=== PATIENT | male | born 1945 | race Caucasian/White ===

== ENCOUNTER 2019-06-04 08:45 | Inpatient (IN) | payer MEDICARE ==
[2019-06-04] VITALS (17 sets, daily range): BP systolic 67–118
[~2019-06-04] VITALS: Ht 175.3 cm; Wt 101.6 kg
[2019-06-04] MEDS ORDERED: PIPERACILLIN/TAZO 3.38 GM in NS 50 ML IV ONE (09:00)
[2019-06-04] MEDS ORDERED: DIPHENHYDRAMINE INJ 50 MG/ML VIAL IVP ONE (09:00)
[2019-06-04] MEDS ORDERED: MORPHINE 2 MG/ML INJ. SYRINGE IVP ONE (09:00)
[2019-06-04] MEDS ORDERED: PIPERACILLIN/TAZOBACTAM 3.375 GM/VIAL (ZOSYN) IV ONE (09:22)
[2019-06-04 09:26] LABS: HEMATOCRIT 31.3 % (36-54); HEMOGLOBIN 10.3 g/dL (14.0-18.0); MEAN CORPUSCULAR HEMOGLOBIN 30 pg (27-31); MEAN CORPUSCULAR HGB CONC 33 % (32-36); MEAN CORPUSCULAR VOLUME 91 fL (79.0-98.0); PLATELET COUNT (AUTO) 280 K/uL (130-430); RED BLOOD CELL COUNT(AUTO) 3.43 MIL/uL (4.2-6.2); RED CELL DISTRIBUTION WIDTH 14.9 % (9.0-15.0); WHITE BLOOD COUNT (AUTO) 25.1 K/uL (4.8-10.8)
[2019-06-04 09:31] LABS: ANION GAP 24 (5-15); CALCIUM 8.7 mg/dL (8.4-11.0); CHLORIDE 89 mmol/L (98-107); GLUCOSE 100 mg/dL (70-99); INR 1.1 (0.80-1.20); PROTHROMBIN TIME 11.4 SECS (9.5-12.5); SODIUM SERUM 127 mmol/L (136-145); UREA NITROGEN, BLOOD 83 mg/dL (8-21)
[2019-06-04 09:35] LABS: ALANINE AMINOTRANSFERASE 44 U/L (12-78); ALBUMIN 2.8 g/dL (3.4-4.8); ASPARTATE AMINOTRANSFERASE 35 U/L (10-37); LIPASE 48 U/L (73-393); TOTAL BILIRUBIN 0.4 mg/dL (0.0-1.0)
[2019-06-04 09:37] LABS: POTASSIUM 6.9 mmol/L (3.5-5.1)
[2019-06-04] MEDS ORDERED: INSULIN REGULAR, HUMAN 10 UNITS/0.1 ML INJ IVP ONE (09:45)
[2019-06-04] MEDS ORDERED: SODIUM BICARBONATE 8.4% JECT 50 MEQ/50 ML SYRINGE IVP ONE (09:45)
[2019-06-04] MEDS ORDERED: CALCIUM CHLORIDE 1 GM/10ML VIAL (13.6 mEq Ca++/VIAL) IVP ONE (09:45)
[2019-06-04] MEDS ORDERED: NACL 0.9% 1,000 ML IV SCH ×2 (09:45→12:35)
[2019-06-04] MEDS ORDERED: DEXTROSE 50% JECT 50 ML DISP.SYRIN IVP ONE (09:45)
[2019-06-04] MEDS ORDERED: SODIUM POLYSTYRENE SULFONATE 15 GM/60 ML UDBTL PO ONE ×2 (09:45→17:15)
[2019-06-04 09:58] LABS: BAND % (MANUAL) 22 % (0-6); BASOPHILS % (MANUAL) 0 % (0-2); EOSINOPHILS % (MANUAL) 0 % (0-7); LYMPHOCYTES % (MANUAL) 2 % (20-46); MONOCYTES % (MANUAL) 5 % (0-11)
[2019-06-04 10:35] LABS: BILIRUBIN,URINE NEGATIVE (NEGATIVE); BLOOD, URINE 2+ (NEGATIVE); CLARITY/URINE SL CLOUDY (CLEAR); COLOR,URINE ORANGE (YELLOW); GLUCOSE,URINE TRACE (NEGATIVE); KETONES,URINE TRACE (NEGATIVE); LEUKOCYTE ESTERASE ,URINE 2+ (NEGATIVE); NITRITE, URINE POSITIVE (NEGATIVE); PROTEIN URINE 3+ (NEGATIVE)
[2019-06-04 10:39] LABS: BACTERIA,URINE MANY /HPF (None Seen); WBC,URINE 20-50 /HPF (0-3)
[2019-06-04] MEDS ORDERED: NACL 0.9% 1,000 ML IV ONE ×2 (11:15→15:15)
[2019-06-04] MEDS ORDERED: D5/0.45 NS 1,000 ML IV SCH (11:30)
[2019-06-04] MEDS ORDERED: HYT1 PO (11:54)
[2019-06-04] MEDS ORDERED: GLU850 PO (11:54)
[2019-06-04] MEDS ORDERED: PHEN97.511 PO (11:54)
[2019-06-04] MEDS ORDERED: LISI10TA5 PO (11:54)
[2019-06-04] MEDS ORDERED: LIP80 PO (11:54)
[2019-06-04] MEDS ORDERED: NPH,100I SQ (11:54)
[2019-06-04] MEDS ORDERED: D5W 1,000 ML IV PRN (12:35)
[2019-06-04] MEDS ORDERED: LORazepam 2 MG/ML VIAL IVP PRN (12:45)
[2019-06-04] MEDS ORDERED: ATORVASTATIN 20 MG TABLET PO ONE (12:45)
[2019-06-04] MEDS ORDERED: DEXTROSE 50% JECT 50 ML DISP.SYRIN IVP PRN (12:45)
[2019-06-04] MEDS ORDERED: HYDROcodone/ACETAMIN 10-325 MG TAB PO PRN (12:45)
[2019-06-04] MEDS ORDERED: ONDANSETRON HCL 4 MG/2 ML VIAL IVP PRN (12:45)
[2019-06-04] MEDS ORDERED: HYDROcodone/ACETAMIN 5-325 MG TAB (NORCO/ VICODIN) PO PRN (12:45)
[2019-06-04] MEDS ORDERED: GLUCOSE 15 GM GEL (in 37.5 GM TUBE) PO PRN (12:45)
[2019-06-04] MEDS ORDERED: ACETAMINOPHEN 325 MG TABLET PO PRN (12:45)
[2019-06-04] MEDS ORDERED: NOREPINEPHRINE BITARTRATE 4 MG in NS 246 ML IV PRN (15:15)
[2019-06-04] MEDS: PIPERACILLIN/TAZO 2.25G/DEX-IS 50 ML IV SCH ×2 (15:27→20:57)
[2019-06-04 16:35] LABS: HEMATOCRIT 26.4 % (36-54); HEMOGLOBIN 8.9 g/dL (14.0-18.0); MEAN CORPUSCULAR HEMOGLOBIN 31 pg (27-31); MEAN CORPUSCULAR HGB CONC 34 % (32-36); MEAN CORPUSCULAR VOLUME 91 fL (79.0-98.0); PLATELET COUNT (AUTO) 221 K/uL (130-430); RED BLOOD CELL COUNT(AUTO) 2.89 MIL/uL (4.2-6.2); RED CELL DISTRIBUTION WIDTH 14.9 % (9.0-15.0); WHITE BLOOD COUNT (AUTO) 17.7 K/uL (4.8-10.8)
[2019-06-04 16:48] LABS: ANION GAP 19 (5-15); CALCIUM 7.9 mg/dL (8.4-11.0); CHLORIDE 92 mmol/L (98-107); GLUCOSE 83 mg/dL (70-99); SODIUM SERUM 125 mmol/L (136-145); UREA NITROGEN, BLOOD 82 mg/dL (8-21)
[2019-06-04 16:53] LABS: ALANINE AMINOTRANSFERASE 50 U/L (12-78); ALBUMIN 2.3 g/dL (3.4-4.8); ASPARTATE AMINOTRANSFERASE 48 U/L (10-37); TOTAL BILIRUBIN 0.4 mg/dL (0.0-1.0)
[2019-06-04 16:59] LABS: POTASSIUM 6.2 mmol/L (3.5-5.1)
[2019-06-04 17:05] LABS: BAND % (MANUAL) 6 % (0-6); BASOPHILS % (MANUAL) 0 % (0-2); EOSINOPHILS % (MANUAL) 0 % (0-7); LYMPHOCYTES % (MANUAL) 1 % (20-46); MONOCYTES % (MANUAL) 4 % (0-11)
[2019-06-04] MEDS: SODIUM BICARBONATE 8.4% JECT 100 MEQ in 0.45% NACL 1,000 ML IV SCH (17:48)
[2019-06-04] MEDS ORDERED: HYDROCORTISONE SOD SUCC 100 MG/2 ML VIAL ONE ×2 (19:06→20:58)
[2019-06-04] MEDS ORDERED: MIDAZOLAM HCL 5 MG/5 ML VIAL ONE (19:16)
[2019-06-04] MEDS ORDERED: LORazepam 2 MG/ML VIAL ONE (20:35)
[2019-06-04] MEDS: HYDROCORTISONE SOD SUCC 100 MG/2 ML VIAL IVP SCH (20:57)
[2019-06-04] MEDS ORDERED: INSULIN GLARGINE 100 UNITS/ML 10 ML VIAL SQ SCH (21:00)
[2019-06-04] MEDS: LEVOFLOXACIN 250 MG/D5W 50 ML IV SCH (21:11)
[2019-06-04] MEDS: metroNIDAZOLE 500 mg/NS 100 ML IV SCH (21:12)
[2019-06-04] MEDS ORDERED: LEVOFLOXACIN 250 MG/D5W 50 ML IV ONE (21:16)
[2019-06-04] MEDS ORDERED: metroNIDAZOLE 500 mg/NS 100 ML IV ONE (21:16)
[2019-06-04] MEDS ORDERED: FUROSEMIDE 40 MG/4 ML VIAL ONE (22:32)
[2019-06-04 22:50] LABS: ANION GAP 20 (5-15); CALCIUM 7.6 mg/dL (8.4-11.0); CHLORIDE 94 mmol/L (98-107); GLUCOSE 161 mg/dL (70-99); SODIUM SERUM 130 mmol/L (136-145); UREA NITROGEN, BLOOD 90 mg/dL (8-21)
[2019-06-04] MEDS: LORazepam 2 MG/ML VIAL IVP PRN (22:58)
[2019-06-04] MEDS ORDERED: NS 500 ML IV SCH (23:00)
[2019-06-04] MEDS ORDERED: FUROSEMIDE 40 MG/4 ML VIAL IVP SCH (23:00)
[2019-06-04] MEDS ORDERED: METOPROLOL TARTRATE 25 MG TABLET PO SCH (23:00)
[2019-06-04 23:10] LABS: CREATININE 8.15 mg/dL (0.55-1.30); POTASSIUM 6.4 mmol/L (3.5-5.1)
[2019-06-04] MEDS ORDERED: DILTIAZEM HCL 25 MG/5 ML VIAL IVP ONE (23:45)
[2019-06-05] VITALS (24 sets, daily range): BP systolic 90–155
[2019-06-05] MEDS: DILTIAZEM HCL 125 MG in D5W 100 ML IV SCH ×4 (00:11→21:03)
[2019-06-05] MEDS ORDERED: DILTIAZEM HCL 125 MG/25 ML VIAL IV ONE (00:17)
[2019-06-05] MEDS ORDERED: SODIUM POLYSTYRENE SULFONATE 15 GM/60 ML UDBTL RC ONE (01:30)
[2019-06-05] MEDS: NOREPINEPHRINE BITARTRATE 4 MG in NS 246 ML IV PRN ×3 (02:57→15:59)
[2019-06-05] MEDS: SODIUM BICARBONATE 8.4% JECT 100 MEQ in 0.45% NACL 1,000 ML IV SCH ×3 (02:58→21:39)
[2019-06-05] MEDS: HYDROCORTISONE SOD SUCC 100 MG/2 ML VIAL IVP SCH ×3 (03:00→21:48)
[2019-06-05] MEDS ORDERED: NOREPINEPHRINE 4 MG/4 ML VIAL IV ONE (03:04)
[2019-06-05] MEDS: PIPERACILLIN/TAZO 2.25G/DEX-IS 50 ML IV SCH ×3 (06:06→21:41)
[2019-06-05] MEDS: INSULIN REGULAR, HUMAN 100 UNITS/ML, 10 ML VIAL (humuLIN R) SUBCUT PRN ×3 (06:07→17:54)
[2019-06-05 06:42] LABS: HEMATOCRIT 26.3 % (36-54); HEMOGLOBIN 8.9 g/dL (14.0-18.0); MEAN CORPUSCULAR HEMOGLOBIN 30 pg (27-31); MEAN CORPUSCULAR HGB CONC 34 % (32-36); MEAN CORPUSCULAR VOLUME 91 fL (79.0-98.0); PLATELET COUNT (AUTO) 246 K/uL (130-430); RED BLOOD CELL COUNT(AUTO) 2.91 MIL/uL (4.2-6.2); RED CELL DISTRIBUTION WIDTH 15.5 % (9.0-15.0); WHITE BLOOD COUNT (AUTO) 22.5 K/uL (4.8-10.8)
[2019-06-05 06:58] LABS: ALANINE AMINOTRANSFERASE 55 U/L (12-78); ALBUMIN 1.9 g/dL (3.4-4.8); ANION GAP 18 (5-15); ASPARTATE AMINOTRANSFERASE 52 U/L (10-37); CALCIUM 7.2 mg/dL (8.4-11.0); CHLORIDE 93 mmol/L (98-107); GLUCOSE 192 mg/dL (70-99); POTASSIUM 5.7 mmol/L (3.5-5.1); SODIUM SERUM 126 mmol/L (136-145); TOTAL BILIRUBIN 0.4 mg/dL (0.0-1.0); UREA NITROGEN, BLOOD 94 mg/dL (8-21)
[2019-06-05 07:04] LABS: CREATININE 8.17 mg/dL (0.55-1.30)
[2019-06-05 08:25] LABS: BAND % (MANUAL) 14 % (0-6); BASOPHILS % (MANUAL) 0 % (0-2); EOSINOPHILS % (MANUAL) 0 % (0-7); LYMPHOCYTES % (MANUAL) 3 % (20-46); MONOCYTES % (MANUAL) 4 % (0-11)
[2019-06-05] MEDS ORDERED: METOPROLOL TARTRATE 25 MG TABLET PO SCH (09:00)
[2019-06-05] MEDS: TERAZOSIN HCL 1 MG CAPSULE (HYTRIN) PO SCH (09:00)
[2019-06-05] MEDS: PHENAZOPYRIDINE HCL 100 MG TABLET PO SCH (09:00)
[2019-06-05] MEDS: ATORVASTATIN 20 MG TABLET PO SCH (09:00)
[2019-06-05] MEDS: LORazepam 2 MG/ML VIAL IVP PRN (09:05)
[2019-06-05] MEDS: metroNIDAZOLE 500 mg/NS 100 ML IV SCH (09:18)
[2019-06-05] MEDS: LEVOFLOXACIN 250 MG/D5W 50 ML IV SCH (21:40)
[2019-06-06] VITALS (26 sets, daily range): BP systolic 100–158
[2019-06-06] MEDS: INSULIN REGULAR, HUMAN 100 UNITS/ML, 10 ML VIAL (humuLIN R) SUBCUT PRN ×5 (00:41→22:11)
[2019-06-06] MEDS: SODIUM BICARBONATE 8.4% JECT 100 MEQ in 0.45% NACL 1,000 ML IV SCH ×2 (06:15→16:38)
[2019-06-06 06:56] LABS: BASOPHILS % (AUTO) 0.2 % (0.0-2.0); EOSINOPHILS # (AUTO) 0.1 K/uL (0.0-0.4); EOSINOPHILS % (AUTO) 0.9 % (0.0-4.0); HEMATOCRIT 26.6 % (36-54); HEMOGLOBIN 9.1 g/dL (14.0-18.0); LYMPHOCYTES # (AUTO) 0.4 K/uL (1.0-5.5); LYMPHOCYTES % (AUTO) 2.5 % (20.5-51.5); MEAN CORPUSCULAR HEMOGLOBIN 30 pg (27-31); MEAN CORPUSCULAR HGB CONC 34 % (32-36); MEAN CORPUSCULAR VOLUME 88 fL (79.0-98.0); MONOCYTES # (AUTO) 1.2 K/uL (0.0-1.0); MONOCYTES % (AUTO) 7.8 % (1.7-9.3); NEUTROPHILS # (AUTO) 13.2 K/uL (1.8-7.7); NEUTROPHILS % (AUTO) 88.6 % (40.0-70.0); PLATELET COUNT (AUTO) 185 K/uL (130-430); RED BLOOD CELL COUNT(AUTO) 3.02 MIL/uL (4.2-6.2); WHITE BLOOD COUNT (AUTO) 14.9 K/uL (4.8-10.8)
[2019-06-06 07:25] LABS: ALANINE AMINOTRANSFERASE 54 U/L (12-78); ALBUMIN 1.9 g/dL (3.4-4.8); ANION GAP 9 (5-15); ASPARTATE AMINOTRANSFERASE 48 U/L (10-37); CALCIUM 7.1 mg/dL (8.4-11.0); CHLORIDE 98 mmol/L (98-107); CREATININE 6.04 mg/dL (0.55-1.30); GLUCOSE 202 mg/dL (70-99); PHOSPHORUS 6.9 mg/dL (2.7-4.5); POTASSIUM 3.9 mmol/L (3.5-5.1); SODIUM SERUM 135 mmol/L (136-145); TOTAL BILIRUBIN 0.3 mg/dL (0.0-1.0); UREA NITROGEN, BLOOD 65 mg/dL (8-21)
[2019-06-06 07:57] LABS: C-REACTIVE PROTEIN QUANT 34.4 mg/dL (0-0.5)
[2019-06-06] MEDS: HYDROCORTISONE SOD SUCC 100 MG/2 ML VIAL IVP SCH ×3 (08:34→22:08)
[2019-06-06] MEDS: PIPERACILLIN/TAZO 2.25G/DEX-IS 50 ML IV SCH ×3 (08:37→22:08)
[2019-06-06] MEDS: DILTIAZEM HCL 125 MG in D5W 100 ML IV SCH (08:43)
[2019-06-06] MEDS: TERAZOSIN HCL 1 MG CAPSULE (HYTRIN) PO SCH (09:00)
[2019-06-06] MEDS: PHENAZOPYRIDINE HCL 100 MG TABLET PO SCH (09:00)
[2019-06-06] MEDS: ATORVASTATIN 20 MG TABLET PO SCH (09:00)
[2019-06-06] MEDS: LORazepam 2 MG/ML VIAL IVP PRN ×4 (09:29→22:08)
[2019-06-06 09:30] LABS: ERYTHROCYTE SEDIMENTATION RATE 67 MM/HR (0-15)
[2019-06-06] MEDS: LEVOFLOXACIN 250 MG/D5W 50 ML IV SCH (22:07)
[2019-06-07] VITALS (24 sets, daily range): BP systolic 114–155
[2019-06-07] MEDS: LORazepam 2 MG/ML VIAL IVP PRN ×3 (01:42→15:28)
[2019-06-07] MEDS: SODIUM BICARBONATE 8.4% JECT 100 MEQ in 0.45% NACL 1,000 ML IV SCH (01:47)
[2019-06-07] MEDS: HYDROCORTISONE SOD SUCC 100 MG/2 ML VIAL IVP SCH ×3 (04:06→21:23)
[2019-06-07] MEDS: PIPERACILLIN/TAZO 2.25G/DEX-IS 50 ML IV SCH ×3 (06:34→21:23)
[2019-06-07] MEDS: INSULIN REGULAR, HUMAN 100 UNITS/ML, 10 ML VIAL (humuLIN R) SUBCUT PRN ×4 (06:37→21:30)
[2019-06-07 06:39] LABS: BASOPHILS % (AUTO) 0.4 % (0.0-2.0); EOSINOPHILS % (AUTO) 0.1 % (0.0-4.0); HEMATOCRIT 25.9 % (36-54); HEMOGLOBIN 8.9 g/dL (14.0-18.0); LYMPHOCYTES # (AUTO) 0.3 K/uL (1.0-5.5); LYMPHOCYTES % (AUTO) 3.6 % (20.5-51.5); MEAN CORPUSCULAR HEMOGLOBIN 30 pg (27-31); MEAN CORPUSCULAR HGB CONC 35 % (32-36); MEAN CORPUSCULAR VOLUME 88 fL (79.0-98.0); MONOCYTES # (AUTO) 1.1 K/uL (0.0-1.0); MONOCYTES % (AUTO) 11.4 % (1.7-9.3); NEUTROPHILS % (AUTO) 84.5 % (40.0-70.0); PLATELET COUNT (AUTO) 145 K/uL (130-430); RED BLOOD CELL COUNT(AUTO) 2.94 MIL/uL (4.2-6.2); WHITE BLOOD COUNT (AUTO) 9.4 K/uL (4.8-10.8)
[2019-06-07 06:59] LABS: ALANINE AMINOTRANSFERASE 49 U/L (12-78); ALBUMIN 1.7 g/dL (3.4-4.8); ANION GAP 8 (5-15); ASPARTATE AMINOTRANSFERASE 45 U/L (10-37); CALCIUM 7.1 mg/dL (8.4-11.0); CHLORIDE 98 mmol/L (98-107); CREATININE 4.77 mg/dL (0.55-1.30); GLUCOSE 185 mg/dL (70-99); PHOSPHORUS 6.7 mg/dL (2.7-4.5); POTASSIUM 3.2 mmol/L (3.5-5.1); SODIUM SERUM 136 mmol/L (136-145); TOTAL BILIRUBIN 0.4 mg/dL (0.0-1.0); UREA NITROGEN, BLOOD 48 mg/dL (8-21)
[2019-06-07 07:35] LABS: C-REACTIVE PROTEIN QUANT 19.8 mg/dL (0-0.5)
[2019-06-07 07:55] LABS: ERYTHROCYTE SEDIMENTATION RATE 62 MM/HR (0-15)
[2019-06-07] MEDS: TERAZOSIN HCL 1 MG CAPSULE (HYTRIN) PO SCH (08:32)
[2019-06-07] MEDS: PHENAZOPYRIDINE HCL 100 MG TABLET PO SCH (08:33)
[2019-06-07] MEDS: ATORVASTATIN 20 MG TABLET PO SCH (08:33)
[2019-06-07] MEDS ORDERED: KCL 20 mEq in 100 mL (PREMIX) 100 ML IV ONE (09:30)
[2019-06-07] MEDS ORDERED: ALBUTEROL SULFATE 0.083% 2.5 MG/3 ML VIAL.NEB INH PRN (10:30)
[2019-06-07] MEDS ORDERED: IPRATROPIUM BROM 0.5 MG/2.5 ML VIAL.NEB (ATROVENT) INH PRN (10:30)
[2019-06-07] MEDS: D5/0.45 NS 1,000 ML IV SCH (11:24)
[2019-06-07] MEDS: ALBUTEROL SULFATE 0.083% 2.5 MG/3 ML VIAL.NEB INH SCH ×2 (14:02→20:09)
[2019-06-07] MEDS: IPRATROPIUM BROM 0.5 MG/2.5 ML VIAL.NEB (ATROVENT) INH SCH ×2 (14:03→20:09)
[2019-06-08] VITALS (20 sets, daily range): BP systolic 100–136
[2019-06-08] MEDS: IPRATROPIUM BROM 0.5 MG/2.5 ML VIAL.NEB (ATROVENT) INH SCH ×4 (00:42→19:42)
[2019-06-08] MEDS: ALBUTEROL SULFATE 0.083% 2.5 MG/3 ML VIAL.NEB INH SCH ×4 (00:43→19:42)
[2019-06-08] MEDS: HYDROCORTISONE SOD SUCC 100 MG/2 ML VIAL IVP SCH ×2 (04:05→21:28)
[2019-06-08] MEDS: D5/0.45 NS 1,000 ML IV SCH ×2 (06:09→21:28)
[2019-06-08] MEDS: PIPERACILLIN/TAZO 2.25G/DEX-IS 50 ML IV SCH ×3 (06:21→21:29)
[2019-06-08] MEDS: INSULIN REGULAR, HUMAN 100 UNITS/ML, 10 ML VIAL (humuLIN R) SUBCUT PRN ×4 (06:26→21:36)
[2019-06-08 06:32] LABS: BASOPHILS % (AUTO) 0.1 % (0.0-2.0); EOSINOPHILS % (AUTO) 0.1 % (0.0-4.0); HEMATOCRIT 24.7 % (36-54); HEMOGLOBIN 8.6 g/dL (14.0-18.0); LYMPHOCYTES # (AUTO) 0.4 K/uL (1.0-5.5); LYMPHOCYTES % (AUTO) 4.4 % (20.5-51.5); MEAN CORPUSCULAR HEMOGLOBIN 31 pg (27-31); MEAN CORPUSCULAR HGB CONC 35 % (32-36); MEAN CORPUSCULAR VOLUME 88 fL (79.0-98.0); MONOCYTES # (AUTO) 1.2 K/uL (0.0-1.0); MONOCYTES % (AUTO) 14.5 % (1.7-9.3); NEUTROPHILS # (AUTO) 6.8 K/uL (1.8-7.7); NEUTROPHILS % (AUTO) 80.9 % (40.0-70.0); PLATELET COUNT (AUTO) 135 K/uL (130-430); RED CELL DISTRIBUTION WIDTH 14.6 % (9.0-15.0); WHITE BLOOD COUNT (AUTO) 8.4 K/uL (4.8-10.8)
[2019-06-08 06:59] LABS: ALANINE AMINOTRANSFERASE 50 U/L (12-78); ALBUMIN 1.8 g/dL (3.4-4.8); ANION GAP 10 (5-15); ASPARTATE AMINOTRANSFERASE 32 U/L (10-37); C-REACTIVE PROTEIN QUANT 11.6 mg/dL (0-0.5); CALCIUM 7.2 mg/dL (8.4-11.0); CHLORIDE 98 mmol/L (98-107); CREATININE 6.55 mg/dL (0.55-1.30); GLUCOSE 357 mg/dL (70-99); SODIUM SERUM 137 mmol/L (136-145); TOTAL BILIRUBIN 0.4 mg/dL (0.0-1.0); UREA NITROGEN, BLOOD 78 mg/dL (8-21)
[2019-06-08 07:46] LABS: ERYTHROCYTE SEDIMENTATION RATE 46 MM/HR (0-15)
[2019-06-08] MEDS: TERAZOSIN HCL 1 MG CAPSULE (HYTRIN) PO SCH (08:28)
[2019-06-08] MEDS: ATORVASTATIN 20 MG TABLET PO SCH (08:28)
[2019-06-08] MEDS: PHENAZOPYRIDINE HCL 100 MG TABLET PO SCH (08:28)
[2019-06-08] MEDS ORDERED: DILTIAZEM HCL 30 MG TABLET PO ONE (09:45)
[2019-06-08] MEDS ORDERED: DILTIAZEM HCL 25 MG/5 ML VIAL IVP PRN (10:30)
[2019-06-08] MEDS ORDERED: DILTIAZEM HCL 25 MG/5 ML VIAL ONE (11:04)
[2019-06-08] MEDS ORDERED: TUBERCULIN,PURIF.PROT.DERIV. 0.1 ML SYR ID ONE (14:30)
[2019-06-08] MEDS ORDERED: HEPARIN SODIUM,PORCINE 5000 UNITS/ML VIAL ONE ×2 (14:32→14:36)
[2019-06-08] MEDS: DILTIAZEM HCL 30 MG TABLET PO SCH ×2 (15:18→21:30)
[2019-06-09] MEDS: IPRATROPIUM BROM 0.5 MG/2.5 ML VIAL.NEB (ATROVENT) INH SCH ×4 (01:31→20:30)
[2019-06-09] MEDS: ALBUTEROL SULFATE 0.083% 2.5 MG/3 ML VIAL.NEB INH SCH ×4 (01:31→20:30)
[2019-06-09 01:33] VITALS: BP_SYST 131
[2019-06-09] MEDS: PIPERACILLIN/TAZO 2.25G/DEX-IS 50 ML IV SCH (06:13)
[2019-06-09] MEDS: DILTIAZEM HCL 30 MG TABLET PO SCH ×3 (06:17→22:42)
[2019-06-09] MEDS: INSULIN REGULAR, HUMAN 100 UNITS/ML, 10 ML VIAL (humuLIN R) SUBCUT PRN ×4 (06:29→22:46)
[2019-06-09 07:25] LABS: HEMATOCRIT 26.2 % (36-54); MEAN CORPUSCULAR HEMOGLOBIN 30 pg (27-31); MEAN CORPUSCULAR HGB CONC 34 % (32-36); MEAN CORPUSCULAR VOLUME 89 fL (79.0-98.0); PLATELET COUNT (AUTO) 158 K/uL (130-430); RED BLOOD CELL COUNT(AUTO) 2.96 MIL/uL (4.2-6.2); RED CELL DISTRIBUTION WIDTH 14.8 % (9.0-15.0); WHITE BLOOD COUNT (AUTO) 10.7 K/uL (4.8-10.8)
[2019-06-09 07:49] LABS: ALANINE AMINOTRANSFERASE 54 U/L (12-78); ANION GAP 10 (5-15); ASPARTATE AMINOTRANSFERASE 43 U/L (10-37); C-REACTIVE PROTEIN QUANT 7.6 mg/dL (0-0.5); CALCIUM 7.5 mg/dL (8.4-11.0); CHLORIDE 98 mmol/L (98-107); CREATININE 5.81 mg/dL (0.55-1.30); GLUCOSE 233 mg/dL (70-99); PHOSPHORUS 3.9 mg/dL (2.7-4.5); SODIUM SERUM 136 mmol/L (136-145); TOTAL BILIRUBIN 0.7 mg/dL (0.0-1.0); UREA NITROGEN, BLOOD 56 mg/dL (8-21)
[2019-06-09 08:00] VITALS: BP_SYST 132
[2019-06-09 08:03] LABS: POTASSIUM 2.8 mmol/L (3.5-5.1)
[2019-06-09 08:15] LABS: HEPATITIS A AB, IgM Negative (Negative); HEPATITIS B CORE AB, IgM Negative (Negative); HEPATITIS B SURFACE AG Negative (Negative)
[2019-06-09] MEDS ORDERED: POTASSIUM CHLORIDE 40 MEQ in NS 250 ML IV ONE (08:15)
[2019-06-09 08:38] LABS: ERYTHROCYTE SEDIMENTATION RATE 40 MM/HR (0-15)
[2019-06-09 09:13] LABS: BAND % (MANUAL) 3 % (0-6); BASOPHILS % (MANUAL) 0 % (0-2); EOSINOPHILS % (MANUAL) 4 % (0-7); LYMPHOCYTES % (MANUAL) 8 % (20-46); MONOCYTES % (MANUAL) 7 % (0-11)
[2019-06-09] MEDS: ATORVASTATIN 20 MG TABLET PO SCH (09:57)
[2019-06-09] MEDS: TERAZOSIN HCL 1 MG CAPSULE (HYTRIN) PO SCH (09:58)
[2019-06-09] MEDS: HYDROCORTISONE SOD SUCC 100 MG/2 ML VIAL IVP SCH ×2 (10:01→22:38)
[2019-06-09 12:07] VITALS: BP_SYST 166
[2019-06-09] MEDS: cefTRIAXone 1 GM in D5W 50 ML IV SCH (13:54)
[2019-06-09 16:00] VITALS: BP_SYST 124
[2019-06-09 20:00] VITALS: BP_SYST 147
[2019-06-09] MEDS: HEPARIN SODIUM,PORCINE 5000 UNITS/ML VIAL SUBCUT SCH (22:37)
[2019-06-09] MEDS: D5/0.45 NS 1,000 ML IV SCH (22:45)
[2019-06-10] VITALS (7 sets, daily range): BP systolic 119–138
[2019-06-10] MEDS: IPRATROPIUM BROM 0.5 MG/2.5 ML VIAL.NEB (ATROVENT) INH SCH ×4 (00:43→20:39)
[2019-06-10] MEDS: ALBUTEROL SULFATE 0.083% 2.5 MG/3 ML VIAL.NEB INH SCH ×4 (00:43→20:39)
[2019-06-10] MEDS: LORazepam 2 MG/ML VIAL IVP PRN (02:37)
[2019-06-10] MEDS: DILTIAZEM HCL 30 MG TABLET PO SCH ×2 (06:08→13:54)
[2019-06-10] MEDS: INSULIN REGULAR, HUMAN 100 UNITS/ML, 10 ML VIAL (humuLIN R) SUBCUT PRN ×3 (06:15→17:20)
[2019-06-10] MEDS: TERAZOSIN HCL 1 MG CAPSULE (HYTRIN) PO SCH (08:38)
[2019-06-10] MEDS: ATORVASTATIN 20 MG TABLET PO SCH (08:38)
[2019-06-10] MEDS: HYDROCORTISONE SOD SUCC 100 MG/2 ML VIAL IVP SCH (08:39)
[2019-06-10] MEDS: HEPARIN SODIUM,PORCINE 5000 UNITS/ML VIAL SUBCUT SCH (08:41)
[2019-06-10 11:16] LABS: HEMATOCRIT 25.2 % (36-54); HEMOGLOBIN 8.7 g/dL (14.0-18.0); MEAN CORPUSCULAR HEMOGLOBIN 31 pg (27-31); MEAN CORPUSCULAR HGB CONC 35 % (32-36); MEAN CORPUSCULAR VOLUME 89 fL (79.0-98.0); PLATELET COUNT (AUTO) 180 K/uL (130-430); RED BLOOD CELL COUNT(AUTO) 2.84 MIL/uL (4.2-6.2); RED CELL DISTRIBUTION WIDTH 14.6 % (9.0-15.0); WHITE BLOOD COUNT (AUTO) 12.5 K/uL (4.8-10.8)
[2019-06-10 11:32] LABS: ANION GAP 9 (5-15); CALCIUM 7.5 mg/dL (8.4-11.0); CHLORIDE 99 mmol/L (98-107); GLUCOSE 302 mg/dL (70-99); PHOSPHORUS 4.8 mg/dL (2.7-4.5); SODIUM SERUM 136 mmol/L (136-145); UREA NITROGEN, BLOOD 78 mg/dL (8-21)
[2019-06-10 11:40] LABS: POTASSIUM 2.9 mmol/L (3.5-5.1)
[2019-06-10] MEDS ORDERED: POTASSIUM CHLORIDE 20 MEQ TAB.PRT.SR PO ONE (11:45)
[2019-06-10 11:53] LABS: ATYPICAL LYMPHOCYTES % 0 % (0-0); BAND % (MANUAL) 6 % (0-6); LYMPHOCYTES % (MANUAL) 5 % (20-46)
[2019-06-10 11:54] LABS: BASOPHILS % (MANUAL) 0 % (0-2); EOSINOPHILS % (MANUAL) 2 % (0-7); METAMYELOCYTES % 1 % (0-0); MONOCYTES % (MANUAL) 4 % (0-11)
[2019-06-10] MEDS: cefTRIAXone 1 GM in D5W 50 ML IV SCH (12:00)
[2019-06-10] MEDS ORDERED: FUROSEMIDE 40 MG/4 ML VIAL IVP ONE (13:15)
[2019-06-10 13:28] LABS: ERYTHROCYTE SEDIMENTATION RATE 37 MM/HR (0-15)
[2019-06-10] MEDS ORDERED: FUROSEMIDE 40 MG/4 ML VIAL IVP SCH (21:00)
== END 2019-06-10 21:20 | DRG 871 ==
LOC: SED 08:45 → SIC 11:30 → STU 06-08 20:51
PROVIDERS: ADMIT Preventive Medicine Preventive Medicine/Occupational Environmental Medicine; ATTEND Preventive Medicine Preventive Medicine/Occupational Environmental Medicine
PROC: 5A1D70Z Performance of Urinary Filtration, Intermittent, Less than 6 Hours Per Day (ICD-10-PCS; 2019-06-05)
PROC: 02HV33Z Insertion of Infusion Device into Superior Vena Cava, Percutaneous Approach (ICD-10-PCS; principal; 2019-06-06)
PROC: B548ZZA Ultrasonography of Superior Vena Cava, Guidance (ICD-10-PCS; 2019-06-06)
PROC: 5A1D70Z Performance of Urinary Filtration, Intermittent, Less than 6 Hours Per Day (ICD-10-PCS; 2019-06-06)
PROC: 5A1D70Z Performance of Urinary Filtration, Intermittent, Less than 6 Hours Per Day (ICD-10-PCS; 2019-06-08)
DX: A41.51 Sepsis due to Escherichia coli [E. coli] (principal); E43 Unspecified severe protein-calorie malnutrition; G93.41 Metabolic encephalopathy; J96.01 Acute respiratory failure with hypoxia; R65.21 Severe sepsis with septic shock; J18.9 Pneumonia, unspecified organism; E87.1 Hypo-osmolality and hyponatremia; N17.9 Acute kidney failure, unspecified; N13.6 Pyonephrosis; E87.2 Acidosis; J91.8 Pleural effusion in other conditions classified elsewhere; I47.1 Supraventricular tachycardia; N13.9 Obstructive and reflux uropathy, unspecified; E11.22 Type 2 diabetes mellitus with diabetic chronic kidney disease; E87.5 Hyperkalemia; E78.00 Pure hypercholesterolemia, unspecified; N40.1 Benign prostatic hyperplasia with lower urinary tract symptoms; E83.39 Other disorders of phosphorus metabolism; E83.41 Hypermagnesemia; E11.65 Type 2 diabetes mellitus with hyperglycemia; E83.52 Hypercalcemia; E78.5 Hyperlipidemia, unspecified; D64.9 Anemia, unspecified; E86.0 Dehydration; I12.9 Hypertensive chronic kidney disease with stage 1 through stage 4 chronic kidney disease, or unspecified chronic kidney disease; N18.9 Chronic kidney disease, unspecified; S00.81XA Abrasion of other part of head, initial encounter; S80.812A Abrasion, left lower leg, initial encounter; X58.XXXA Exposure to other specified factors, initial encounter; Y93.89 Activity, other specified; Z68.33 Body mass index [BMI] 33.0-33.9, adult; Z83.3 Family history of diabetes mellitus; Z79.899 Other long term (current) drug therapy; Z79.4 Long term (current) use of insulin; Z82.49 Family history of ischemic heart disease and other diseases of the circulatory system; Y92.89 Other specified places as the place of occurrence of the external cause; Y99.8 Other external cause status
CPT/HCPCS: 36415; 36600; 70450-TC; 71045; 80048; 80053; 80074; 81000-TC; 82140-TC; 82803-TC; 82962; 83605; 83690-TC; 83735-TC; 84100-TC; 85007; 85025; 85027; 85610-TC; 85651-TC; 86140; 86580; 87040-TC; 87081; 87086; 87186-TC; 90935; 90937; 93005; 93306; 94640; 94760; 96365; 96375; 99291; C1751; G0378; J0696; J1200; J1644; J1720; J1815; J1940; J1956; J2060; J2250; J2270; J2543; J3480; J3490; J7030; J7040; J7050; J7060; J7613